=== PATIENT | female | born 1985 | race African-American/Black ===

== ENCOUNTER 2016-12-09 06:27 | Inpatient (IN) | payer OTHER ==
--- NOTE | 2016-12-09 07:09 | PDOC ---
History of Present Illness - General Chief Complaint: Sickle Cell Crisis Stated Complaint: PAIN/SICKLE CELL CRISIS Time Seen by Provider: 12/09/16 07:08 History Source: Patient Exam Limitations: No Limitations - History of Present Illness Initial Comments: 12/09/16 08:09 CHIEF COMPLAINT: Generalized body pain PCP: Dr. Vito Guzman (Microwave Supervisor) [phone] Dr. Mansoor Villaseñor. HISTORY OF PRESENT ILLNESS: 31 year old female presented to the ED with Generalized body pain. A/c to the patient, she has a h/o sickel cell disease and the pain she has now is usual for her when its severe. Complaints of generalized pain more on the lower extremities since 4pm yesterday. Took Oxycodone which didn't help and came to the ED this morning. Denies headache, fever, chills, rigors, sweating, chest pain, sob, cough, abdominal pain, nausea or vomiting. Bowel/Bladder habit normal. Sleep/Appetite disturbed since yesterday Home oxygen therapy @ 2-4L, baseline saturation is around 85-90% as per the patient. 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 Others-unknown. Hospitalized: Aug, 2016 for the Sickel cell painful crisis. Social Hx: Never smoked No Alcohol intake No illicit drug use Obs Hx: 2 Spontaneous abortions Lives at home with her Can do Daily activities 12/09/16 09:07 12/09/16 09:26 Past History - Past Medical History Allergies/Adverse Reactions: Allergies Allergy/AdvReac Type Severity Reaction Status Date / Time Penicillins Allergy Severe ANAPHYLAXIS Verified 12/09/16 06:39 milk Allergy Verified 12/09/16 06:39 milk Allergy Uncoded 12/09/16 06:39 Red grapes Allergy Uncoded 12/09/16 06:39 Home Medications: Ambulatory Orders Hydromorphone [Dilaudid -] 4 mg PO Q8H 08/29/16 Folic Acid - 1 mg PO DAILY #30 tablet 09/06/16 Anemia: Yes (sickle cell) Asthma: Yes Cancer: (thyoma) Cardiac Disorders: No CVA: Yes (age 18, lt sided weakness; TIA age 12) COPD: No CHF: No Dementia: No Diabetes: No GI Disorders: No Disorders: No HTN: No Hypercholesterolemia: No Liver Disease: No Psychiatric Problems: Yes (ANXIETY) Suicide Attempt (Hx): No Seizures: No Thyroid Disease: No - Surgical History Abdominal Surgery: Yes Appendectomy: Yes Cardiac Surgery: No Cholecystectomy: Yes Lung Surgery: No Neurologic Surgery: No Orthopedic Surgery: No - Family Disease History Family Disease History: Other: Father (scd) - Reproductive History (#): 4 Para: 1 Cervical CA: No Dysfunctional Uterine Bleeding: No Ectopic : No Endometrial CA: No Polycystic Ovaries: No Therapeutic (s) & number: No Tubal Ligation: No Spontaneous : 2 - Immunization History Immunization Up to Date: Yes - Psycho/Social/Smoking Cessation Hx Anxiety: Yes Suicidal Ideation: No Smoking Status: No Smoking History: Never smoked Have you smoked in the past 12 months: No Number of Cigarettes Smoked Daily: 0 Information on smoking cessation initiated: No Hx Alcohol Use: No Drug/Substance Use Hx: No Substance Use Type: None Hx Substance Use Treatment: No Review of Systems - Review of Systems Able to Perform ROS?: Yes Comments:: 12/09/16 08:06 CONSTITUTIONAL: Absent: fever, chills, diaphoresis, generalized weakness, malaise, loss of appetite HEENT: Absent: rhinorrhea, nasal congestion, throat pain, throat swelling, difficulty swallowing, mouth swelling, ear pain, eye pain, visual Changes CARDIOVASCULAR: Absent: chest pain, syncope, palpitations, irregular heart rate, lightheadedness , peripheral edema RESPIRATORY: Absent: cough, shortness of breath, dyspnea with exertion, orthopnea, wheezing, stridor, hemoptysis GASTROINTESTINAL: Absent: abdominal pain, abdominal distension, nausea, vomiting, diarrhea, constipation, melena, hematochezia GENITOURINARY: Absent: dysuria, frequency, urgency, hesitancy, hematuria, flank pain, genital pain MUSCULOSKELETAL: Present: Generalized body pain Absent: myalgia, arthralgia, joint swelling SKIN: Absent: rash, itching, pallor HEMATOLOGIC/IMMUNOLOGIC: Absent: easy bleeding, easy bruising, lymphadenopathy, frequent infections ENDOCRINE: Absent: unexplained weight gain, unexplained weight loss, heat intolerance, cold intolerance NEUROLOGIC: Absent: headache, focal weakness or paresthesias, dizziness, unsteady gait, seizure, mental status changes, bladder or bowel incontinence PSYCHIATRIC: Absent: anxiety, depression, suicidal or homicidal ideation, hallucinations. Is the patient limited [place]ian proficient: No *Physical Exam - Vital Signs Last Vital Signs Temp Pulse Resp BP Pulse Ox 98.0 F 104 H 16 93/57 87 L 12/09/16 06:41 12/09/16 06:41 12/09/16 06:41 12/09/16 06:41 12/09/16 06:41 - Physical Exam Comments: 12/09/16 08:04 PE: GENERAL: Awake, alert, and fully oriented, in generalized body pain HEAD: No signs of trauma EYES: PERRLA, EOMI, sclera anicteric, conjunctiva clear ENT: Auricles normal inspection, hearing grossly normal, nares patent, oropharynx clear without exudates. Moist mucosa NECK: Normal ROM, supple, no lymphadenopathy, JVD, or masses LUNGS: Breath sounds equal, clear to auscultation bilaterally. No wheezes, and no crackles.. HEART: Regular rate and rhythm, normal S1 and S2, no murmurs, rubs or gallops ABDOMEN: Soft, nontender, normoactive bowel sounds. No guarding, no rebound. No masses EXTREMITIES: Generalized tenderness to slight touch more towards the lower extremities. Normal range of motion, no edema. No clubbing or cyanosis. No cords, erythema, or tenderness NEUROLOGICAL: Cranial nerves II through XII grossly intact. Normal speech, Gait not observed. SKIN: Warm, Dry, normal turgor, no rashes or lesions noted. ED Treatment Course - LABORATORY CBC & Chemistry Diagram: 12/09/16 07:45 12/09/16 07:45 Medical Decision Making - Medical Decision Making 12/09/16 07:10 Patient seen and examined at bed side. Vitals, unremarkable. Patient is in a lot of pain. Physical examination positive finding: tenderness throughout the body with slight touch, more tender over the lower extremities. Will order CBC, CMP, Reticulocyte count, LDH, UA, CXR, Type and screen. IV NS 1L bolus and IV NS @ 100mls/hr IV Dilaudid 1mg stat Nasal Oxygen 12/09/16 07:35 Patient says the pain didn't resolve with 1mg. Will order 1mg of Dilaudid stat. 12/09/16 08:25 Labs reviewed, H/H 8.9/26.2; Reticulocyte count 22.06 12/09/16 09:06 Ordered 1mg Dilaudid stat. A/P Sickel cell painful crisis (HbSS) Patient presents with generalized body pain, tenderness throughout the body H/H 8.9/26.2; Reticulocyte count 22.06 Patient received 3mg IV Dilaudid, still complaining of severe pain IV NS 2L bolus, IV NS @ 100mls/hr Oxygen-sat maintaining between 90-95 @ 4L Illness, Investigation and Plan of care explained to the patient. She verbalized understanding. Case seen and discussed with Dr. Guy. *DC/Admit/Observation/Transfer Diagnosis at time of Disposition: Sickle cell pain crisis - Discharge Dispostion Admit: Yes
[2016-12-09] MEDS ORDERED: HYDROmorphone HCL CARPU-JECT 1 MG/1 ML DISP.SYRIN IVPB ONE ×3 (07:18→09:05)
[2016-12-09] MEDS ORDERED: HYDROmorphone HCL CARPU-JECT 1 MG/1 ML DISP.SYRIN ONE ×4 (07:25→11:08)
[2016-12-09] MEDS ORDERED: SODIUM CHLORIDE 1,000 ML IV STA ×2 (07:47→08:49)
[2016-12-09] MEDS ORDERED: SODIUM CHLORIDE 1,000 ML IV SCH ×2 (08:00→10:00)
[2016-12-09 08:04] LABS: MCH 31.9 pg (25.7-33.7); MCHC 34.1 g/dl (32.0-36.0); MEAN CELL VOLUME 93.4 fl (80-96); MEAN PLT VOLUME 8.4 fl (7.5-11.1); PLATELET COUNT 336 K/MM3 (134-434)
[2016-12-09 08:24] LABS: ALBUMIN 3.7 g/dl (3.4-5.0); ALK PHOS 109 U/L (45-117); ANION GAP 9 (8-16); BILIRUBIN,TOTAL 1.8 mg/dL (0.2-1.0); CALCIUM 8.6 mg/dL (8.5-10.1); CO2 27 mmol/L (21-32); CREATININE 0.5 mg/dL (0.55-1.02); GLUCOSE,RANDOM 112 mg/dL (74-106); SGPT/ALT 24 U/L (12-78); TOT PROT 7.1 g/dl (6.4-8.2)
[2016-12-09 08:26] LABS: SGOT/AST 57 U/L (15-37)
[2016-12-09 08:27] LABS: LDH 678 U/L (84-246)
--- NOTE | 2016-12-09 08:30 | PDOC ---
Attending Attestation - Resident Resident Name: Jaz Hellerny - ED Attending Attestation I have performed the following: I have examined & evaluated the patient, The case was reviewed & discussed with the resident, I agree w/resident's findings & plan, Exceptions are as noted - HPI HPI: 12/09/16 08:27 31 yo F h/o sickle cell disease, AVN presenting to the ER with a complaint of diffuse bone and joint pain No fevers no chills No chest pain No shortness of breath No nausea or vomiting No trauma - Physicial Exam PE: 12/09/16 08:28 On examination: Pt is very uncomfortable No wheezes or rales No abdominal tenderness - Medical Decision Making 12/09/16 08:28 Will do labs including CBC, Type and Screen, Reticulocyte Differential: sickle crisis, acute chest, pneumonia, PE Pt initially refusing CXR Given a total of Dilaudid 3mg IV n 1mg increments Pt allowing CXR Pt found snoring but when awoken, pt cries in pain Pt states she continuously wears 2 L O2 Admitted to hospitalist service
--- NOTE | 2016-12-09 09:16 | HP ---
[id number] is a 31 year old female with a history of sickle cell disease, asthma, TIA (age 12), CVA (age 18), avascular necrosis of bilateral hips, and 2 spontaneous abortions, who presented to the ED with complaints of generalized pain that is typical to her sickle cell pain. She is normally hospitalized with vaso-occlusive crisis less than once per year. She describes the pain as sharp, constant, and generalized, worst in the bilateral lower extremities. She took oxycodone without relief and came into the ED. Patient denies dyspnea, wheezing , coughing, chest pain, calf tenderness or swelling, flank pain, headache, dizziness, nausea, vomiting, diarrhea. She denies recent travel/trauma/surgery, chest pain, cough or hemoptysis, calf pain, OCP use, cigarette smoking, and family/personal history of DVT/PE. ER course was notable for: (1) H/H 8.9/26.2, reticulocyte count 22.06 (2) Oxygen Saturation 87% on room air; patient uses home O2 and baseline is about 94% on 2L per her report (3) WBC count 32.7 PAST SURGICAL HISTORY: Breast Biopsy Appendectomy Cholecystectomy Thymectomy (2007) Social History: Lives at home with keanu, studying biochemistry, not employed Smoking: never smoked Alcohol: no alcohol use Drugs: no drug use Family History: Notable for father with Sickle Cell Disease Allergies Penicillins Allergy (Severe, Verified 12/09/16 06:39) - ANAPHYLAXIS Milk Allergy (Verified 12/09/16 06:39) Red grapes Allergy (Uncoded 12/09/16 06:39) HOME MEDICATIONS: Home Medications Medication Instructions Recorded Hydromorphone [Dilaudid -] 4 mg PO Q8H 08/29/16 Folic Acid - 1 mg PO DAILY #30 tablet 09/06/16 REVIEW OF SYSTEMS CONSTITUTIONAL: generalized weakness Absent: fever, chills, diaphoresis, generalized weakness, malaise, loss of appetite, weight change HEENT: Absent: rhinorrhea, nasal congestion, throat pain, throat swelling, difficulty swallowing, mouth swelling, ear pain, eye pain, visual changes CARDIOVASCULAR: Absent: chest pain, syncope, palpitations, irregular heart rate, lightheadedness , peripheral edema RESPIRATORY: No shortness of breath- states she is breathing rapidly because of pain Absent: cough, shortness of breath, dyspnea with exertion, orthopnea, wheezing, stridor, hemoptysis GASTROINTESTINAL: Absent: abdominal pain, abdominal distension, nausea, vomiting, diarrhea, constipation, melena, hematochezia GENITOURINARY: Absent: dysuria, frequency, urgency, hesitancy, hematuria, flank pain, genital pain MUSCULOSKELETAL: pain to lower extremities > upper extremities Absent: myalgia, arthralgia, joint swelling, back pain, neck pain SKIN: Absent: rash, itching, pallor HEMATOLOGIC/IMMUNOLOGIC: No history of DVT/PE Absent: easy bleeding, easy bruising, lymphadenopathy, frequent infections ENDOCRINE: Absent: unexplained weight gain, unexplained weight loss, heat intolerance, cold intolerance NEUROLOGIC: Absent: headache, focal weakness or paresthesias, dizziness, unsteady gait, seizure, mental status changes, bladder or bowel incontinence PSYCHIATRIC: Absent: anxiety, depression, suicidal or homicidal ideation, hallucinations. PHYSICAL EXAMINATION Vital Signs - 24 hr 12/09/16 06:41 Temperature 98.0 F Pulse Rate 104 H Respiratory 16 Rate Blood Pressure 93/57 O2 Sat by Pulse 87 L Oximetry (%) GENERAL: Awake, alert, and fully oriented, in distress secondary to pain. LUNGS: Tachypneic, breath sounds equal, clear to auscultation bilaterally. No wheezes, and no crackles. HEART: Regular rate and rhythm, normal S1 and S2. ABDOMEN: Obese. Soft, nontender, not distended, normoactive bowel sounds. MUSCULOSKELETAL: Normal range of motion of all joints. UPPER EXTREMITIES: 2+ pulses, warm, well-perfused. No cyanosis. No clubbing. Cap refill <2 seconds. No peripheral edema. LOWER EXTREMITIES: Diffuse lower extremity tenderness. 2+ pulses, warm, well- perfused. No peripheral edema. NEUROLOGICAL: Cranial nerves II-XII intact. Normal speech. PSYCHIATRIC: Calm and cooperative. SKIN: Warm, dry, normal turgor, no rashes or lesions noted. Laboratory Results - last 24 hr 12/09/16 12/09/16 12/09/16 07:45 07:45 07:45 RBC 2.80 L Hgb 8.9 L Hct 26.2 L MCV 93.4 MCHC 34.1 RDW 29.0 H Plt Count 336 D MPV 8.4 Neutrophils % Y Lymphocytes % Y Retic Count 22.06 H* D Sodium Potassium Chloride Carbon Dioxide Anion Gap BUN Creatinine Creat Clearance w eGFR Random Glucose Calcium Total Bilirubin AST ALT Alkaline Phosphatase LD Total Total Protein Albumin Serum , Qual Negative Blood Type Antibody Screen 12/09/16 12/09/16 07:45 08:07 RBC Hgb Hct MCV MCHC RDW Plt Count MPV Neutrophils % Lymphocytes % Retic Count Sodium 138 Potassium 4.8 Chloride 102 Carbon Dioxide 27 Anion Gap 9 BUN 8 Creatinine 0.5 L D Creat Clearance w eGFR > 60 Random Glucose 112 H D Calcium 8.6 Total Bilirubin 1.8 H D AST 57 H D ALT 24 Alkaline Phosphatase 109 D LD Total 678 H D Total Protein 7.1 Albumin 3.7 Serum , Qual Blood Type O POSITIVE Antibody Screen Negative ASSESSMENT/PLAN: This is a 31 year old female with a history of sickle cell disease admitted with vaso-occlusive crisis. Sickle Cell disease - Pain management: - Dilaudid IVPB 2mg q 4 hours PRN pain - Gentle hydration - NS @ 83 ml/hour - Continue folic acid - Diphenydramine PRN for itching - Ondansetron PRN for nausea - H/H 8.9/26.2, transfuse RBC for Hgb < 7 - Continue to trend reticulocyte count and LDH Leukocytosis: - Possibly secondary to leukemoid reaction vs infection - WBC count 32.7 - Continue to trend WBC and fever curve - Blood cultures pending - Urine culture pending - Chest X-ray pending - Acetaminophen PRN for fever Hypoxia: - Possibly secondary to anemia vs chest splinting from pain - Considered acute chest syndrome, however unlikely because patient denies difficulty breathing, cough, dyspnea, wheezing, is afebrile, AP CXR does not demonstrate an infiltrate. Will obtain PA/Lateral for better view. - Considered pulmonary embolism, however unlikely because denies history of PE/ DVT, pleuritic pain, calf pain or swelling, or hemoptysis. - Continue supplementary oxygen via nasal cannula; wean FiO2 as tolerated ( currently on 6L, baseline is 2L) - Incentive spirometer - Nebulizer treatment PRN wheezing DVT prophyaxis: - Lovenox 40 mg daily - Out of bed as tolerated F/E/N: - Vincenzo hydration - Replete electrolytes as needed - Regular diet Code status: - FULL CODE Problem List - Problem (1) Asthma Code(s): J45.909 - UNSPECIFIED ASTHMA, UNCOMPLICATED (2) DVT prophylaxis Code(s): OWM6431 - (3) Sickle cell anemia with crisis Code(s): D57.00 - HB-SS DISEASE WITH CRISIS, UNSPECIFIED Visit type - Emergency Visit Emergency Visit: Yes ED Registration Date: 12/09/16 Care time: The patient presented to the Emergency Department on the above date and was hospitalized for further evaluation of their emergent condition. - New Patient This patient is new to me today: Yes Date on this admission: 12/09/16 - Critical Care Critical Care patient: No
[2016-12-09 09:25] LABS: WHITE BLOOD COUNT 32.7 K/mm3 (4.0-10.0)
[2016-12-09 09:26] LABS: METAMYELOCYTE 3 % (0-2)
[2016-12-09 09:27] LABS: ANISOCYTOSIS 3+; HYPOCHROMIA 3+; POIKILOCYTOSIS 2+; POLYCHROMASIA 4+
[2016-12-09 09:28] LABS: PLATELET ESTIMATE ADEQUATE (NORMAL); TARGET CELLS FEW
[2016-12-09] MEDS ORDERED: HYDROmorphone HCL CARPU-JECT 2 MG/1 ML DISP.SYRIN IVPB PRN ×2 (09:56→19:24)
[2016-12-09] MEDS ORDERED: ONDANSETRON 4 MG/2 ML VIAL IVPB PRN (09:56)
[2016-12-09] MEDS: ENOXAPARIN NA (PORCINE) 40 MG/0.4 ML DISP.SYRIN SQ SCH (10:15)
[2016-12-09] MEDS: FOLIC ACID 1 MG TABLET (FP) PO SCH (10:15)
[2016-12-09] MEDS ORDERED: FOLIC ACID 1 MG TABLET (FP) ONE ×2 (10:58→11:08)
[2016-12-09] MEDS ORDERED: ENOXAPARIN NA (PORCINE) 40 MG/0.4 ML DISP.SYRIN SQ ONE (10:59)
[2016-12-09] MEDS: HYDROmorphone HCL CARPU-JECT 2 MG/1 ML DISP.SYRIN IVPUSH ONE ×2 (11:16→13:41)
[2016-12-09 11:58] VITALS: BMI 44.9
[2016-12-09 14:04] LABS: URINE APPEARANCE CLEAR; URINE BILIRUBIN NEGATIVE (NEGATIVE); URINE COLOR YELLOW; URINE GLUCOSE (UA) NEGATIVE (NEGATIVE); URINE KETONE NEGATIVE (NEGATIVE); URINE LEUK ESTERASE NEGATIVE (NEGATIVE); URINE NITRITE NEGATIVE (NEGATIVE); URINE UROBILINOGEN NEGATIVE E.U./dl (0.2-1.0)
[2016-12-09 14:05] LABS: URINE BLOOD 2+ (NEGATIVE); URINE PROTEIN 2+ (NEGATIVE)
[2016-12-09 14:06] LABS: URINE BACTERIA RARE /hpf (NONE SEEN); URINE MUCUS RARE; URINE RBC 3 /hpf (0-3); URINE WBC 1 /hpf (3-5)
[2016-12-09] MEDS: DOCUSATE SODIUM 100 MG CAPSULE (FP) PO SCH ×2 (15:45→21:38)
[2016-12-09] MEDS ORDERED: KETOROLAC TROMETHAMINE 15 MG/ML VIAL IVPUSH ONE (18:00)
[2016-12-09] MEDS: ACETAMINOPHEN 325 MG TABLET (FP) PO PRN (18:48)
[2016-12-09] MEDS: SODIUM CHLORIDE 1,000 ML IV SCH (19:18)
[2016-12-09] MEDS ORDERED: HYDROmorphone HCL CARPU-JECT 2 MG/1 ML DISP.SYRIN IVPB ONE (19:21)
--- NOTE | 2016-12-09 19:52 | CONSULT ---
Consult Consult Specialty:: Hematology Oncology Referred by:: Lily Rodríguez Reason for Consultation:: Pain lower extremities X several days, Hx SS disease - History of Present Illness History of Present Illness: 31 y/o F w Hx SS disease , average 3 hospitalizations/year, had been on exchange program X several years, hx Hydrea Rx in past , still looking for physician continuity with regards to f/u of her various issues. She had an upper resp. infection (cough, murky phlegm) last week which resolved several days ago, but now she has developed leg pain b/l c/w her usual crises pains. She denies fever/ chills /dysuria ; she has chronic MARINELLI, hx asthma /airway disease , seen by Dr Young , and uses portable O2 at home ; she denies any worsening of her breathing in last few days. Her CXR's here show cardiomegaly, increased markings, blunting L CP angle.CBC showed WBC32.7 w 72 p, 14 l,8monos, 2 eos H/H = 8.9/26 plates 331K Retic 22% 3+ sickle cells creat 0.8 T.bili1.8 LDH 678 ;UA w 2+blood/prot .Pt on narcotics at home ; Dilauded 2mg not helping at this time. Pt on hydration ,Folic acid.Afebrile, no ab's yet. 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, TIA (age 12) Pulmonary: Yes: Asthma, O2 Dependent (has O2 athome) Gastrointestinal: Yes: Constipation, Other (hyperemesis gravidum) Hepatobiliary: Yes: Cholelithiasis, Cholecystitis, Other (cholecystectomy) ...LMP: 10/28/16 ...: Yes Heme/Onc: Yes: Sickle Cell Disease Psych: Yes: Anxiety Musculoskeletal: Yes: Other (chronic hip pains due to AVN ) Rheumatology: No: Fibromyalgia, Gout, Lupus, Rheumatoid Arthritis, Sarcoidosis, Vasculitis, Other ENT: No: Allergic Rhinitis, Sinusitis, Other Endocrine: Yes: Other (obesity) - Past Surgical History Past Surgical History: Yes: Breast Biopsy, Cholecystectomy, Tonsillectomy - Alcohol/Substance Use Hx Alcohol Use: No History of Substance Use: reports: None - Smoking History Smoking history: Never smoked Have you smoked in the past 12 months: No Aproximately how many cigarettes per day: 0 - Social History ADL: Independent Occupation: unemployed History of Recent Travel: No Home Medications - Allergies Allergies/Adverse Reactions: Allergies Allergy/AdvReac Type Severity Reaction Status Date / Time Penicillins Allergy Severe ANAPHYLAXIS Verified 12/09/16 06:39 milk Allergy Verified 12/09/16 06:39 milk Allergy Uncoded 12/09/16 06:39 Red grapes Allergy Uncoded 12/09/16 06:39 - Home Medications Home Medications: Ambulatory Orders Hydromorphone [Dilaudid -] 4 mg PO Q8H PRN 08/29/16 Folic Acid - 1 mg PO DAILY #30 tablet 09/06/16 Family Disease History - Family Disease History Family Disease History: Other: Father (sickle cell trait), Mother (sickle cell trait,breast/ovarian ca), Sister (sickle cell trait) Review of Systems - Review of Systems Constitutional: reports: Loss of Appetite, Weakness Eyes: reports: No Symptoms HENT: reports: No Symptoms Neck: reports: No Symptoms Cardiovascular: reports: No Symptoms Respiratory: reports: SOB, SOB on Exertion. denies: No Symptoms, Cough, Exercise Intolerance, Hemoptysis, Orthopnea, PND, Snoring, Wheezing, Other Gastrointestinal: reports: Constipation. denies: No Symptoms, Abdominal Pain, Bloating, Diarrhea, Dysphagia, Indigestion, Melena, Nausea, Rectal Bleeding, Vomiting, Vomiting Blood, Other Genitourinary: reports: No Symptoms Breasts: denies: No Symptoms Reported, See HPI, Breast Implants, Discharge from Nipple, Lumps, Pain, Skin Changes, Other Musculoskeletal: reports: Extremity Pain, Joint Pain, Muscle Pain Integumentary: denies: No Symptoms, Blister, Bruising, Change in Color, Eczema, Erythema, Incision, Lesions, Lump, Pallor, Pruritis, Rash, Wound, Other Neurological: denies: No Symptoms, Change in LOC, Change in Speech, Confusion, Dizziness, Headache, Incoordination, Numbness, Parasthesia, Pre-Existing Deficit , Seizure, Syncope, Tremors, Unsteady Gait, Weakness, Other Endocrine: denies: No Symptoms, Excessive Sweating, Flushing, Increased Hunger, Increased Thirst, Intolerance to Cold, Intolerance to Heat, Unexplained Weight Gain, Unexplained Weight Loss, Other Hematology/Lymphatic: denies: No Symptoms, Easily Bruised, Excessive Bleeding, Swollen Glands, Other Psychiatric: reports: Anxiety Physical Exam Vital Signs: Vital Signs Temperature 99.1 F 12/09/16 18:14 Pulse Rate 100 H 12/09/16 18:14 Respiratory Rate 16 12/09/16 18:14 Blood Pressure 138/56 12/09/16 18:14 O2 Sat by Pulse Oximetry (%) 96 12/09/16 16:00 Constitutional: Yes: Anxious, Moderate Distress, Obese Eyes: Yes: Other (conj pale) HENT: Yes: WNL Neck: Yes: WNL Cardiovascular: Yes: Tachycardia, S1, S2 Respiratory: Yes: Diminished Gastrointestinal: Yes: WNL, Normal Bowel Sounds, Abdomen, Obese. No: Soft, Ascites, Distention, Hematemesis, Hemorrhoids, Hepatomegaly, Hernia, Hyperactive Bowel Sounds, Hypoactive Bowel Sounds, Melena, Palpable Mass, Pulsatile Mass, Rectal Bleeding, Splenomegaly, Tenderness, Tenderness, Epigastrium, Tenderness, Rebound, Vomiting, Other Musculoskeletal: Yes: Joint Stiffness, Muscle Pain Extremities: Yes: Other (decreased ROM LE's) Problem List - Problems (1) Sickle cell pain crisis Code(s): D57.00 - HB-SS DISEASE WITH CRISIS, UNSPECIFIED Assessment/Plan Sickle crisis - Continue hydration , increase dilauded to 3mg q3h prn , will add motrin q6h and tylenol iv prn ; Folic acid , Lovenox prophylaxis ; leucocytosis may be reactive , continue to follow and see if coming down ; monitor for fever ; monitor O2 sat's ; consider pulmonary imput in view of her oxygen exchange issues ; keep Hgb >8.If crisis lasts too long, could consider exchange .
[2016-12-09] MEDS ORDERED: ACETAMINOPHEN 1000 MG/100 ML VIAL (NON FORMULARY) IVPB PRN (20:18)
[2016-12-09] MEDS: PANTOPRAZOLE 20 MG TABLET (FP) PO SCH (21:38)
[2016-12-09] MEDS: IBUPROFEN 400 MG TABLET (FP) PO PRN (21:38)
[2016-12-09] MEDS: ALBUTEROL SO4 0.083% IH SOL 2.5 MG/3 ML VIAL.NEB. NEB PRN (21:43)
[2016-12-09] MEDS: HYDROmorphone HCL CARPU-JECT 2 MG/1 ML DISP.SYRIN IVPB PRN (22:16)
[2016-12-10] MEDS: HYDROmorphone HCL CARPU-JECT 2 MG/1 ML DISP.SYRIN IVPB PRN ×7 (02:15→21:08)
[2016-12-10] MEDS: SODIUM CHLORIDE 1,000 ML IV SCH ×2 (02:19→15:13)
[2016-12-10] MEDS: IBUPROFEN 400 MG TABLET (FP) PO PRN ×3 (05:14→20:32)
[2016-12-10] MEDS: DOCUSATE SODIUM 100 MG CAPSULE (FP) PO SCH ×3 (06:38→22:09)
[2016-12-10 08:34] LABS: BASOPHIL 0.9 % (0-2.0); EOSINOPHIL 0.9 % (0-4.5); MCH 31.5 pg (25.7-33.7); MCHC 33.9 g/dl (32.0-36.0); MEAN CELL VOLUME 92.8 fl (80-96); MEAN PLT VOLUME 8.2 fl (7.5-11.1); NEUTROPHILS 68.2 % (42.8-82.8); PLATELET COUNT 261 K/MM3 (134-434); RDW 25.6 % (11.6-15.6); WHITE BLOOD COUNT 16.8 K/mm3 (4.0-10.0)
[2016-12-10 09:15] LABS: ALBUMIN 3.1 g/dl (3.4-5.0); ALK PHOS 97 U/L (45-117); ANION GAP 7 (8-16); BILIRUBIN,TOTAL 3.3 mg/dL (0.2-1.0); CALCIUM 8.4 mg/dL (8.5-10.1); CO2 30 mmol/L (21-32); CREATININE 0.4 mg/dL (0.55-1.02); GLUCOSE,RANDOM 84 mg/dL (74-106); LDH 576 U/L (84-246); MAGNESIUM 2.2 mg/dL (1.8-2.4); PHOSPHOROUS 4.1 mg/dL (2.5-4.9); SGOT/AST 43 U/L (15-37); SGPT/ALT 20 U/L (12-78); TOT PROT 6.2 g/dl (6.4-8.2)
[2016-12-10] MEDS: FOLIC ACID 1 MG TABLET (FP) PO SCH (09:38)
[2016-12-10] MEDS: PANTOPRAZOLE 20 MG TABLET (FP) PO SCH (09:38)
[2016-12-10] MEDS: ENOXAPARIN NA (PORCINE) 40 MG/0.4 ML DISP.SYRIN SQ SCH (09:38)
[2016-12-10] MEDS: ALBUTEROL SO4 0.083% IH SOL 2.5 MG/3 ML VIAL.NEB. NEB PRN ×2 (12:06→23:22)
--- NOTE | 2016-12-10 14:41 | PN ---
Physical Exam: SUBJECTIVE: Patient seen and examined. She says she is better than yesterday but her legs are still very painful and restless. Denies CP or difficulty breathing, able to have full conversations on the phone and in person OBJECTIVE: Vital Signs Period Temp Pulse Resp BP Sys/Rendon Pulse Ox Last 24 Hr 98.8 F-99.4 F 90-100 16-28 104-138/50-56 93-96 PE Neuro: alert, awake, cn 2-12intact HEENT: poor dentition, greyish front teeth Pulm: distant, diminished no acute sob CV: s1 s2 rrr no mrg Abd: s nt nd + bs Ext: b/l LE tenderness to palpation, b/l UE tenderness improved Laboratory Results - last 24 hr 12/10/16 12/10/16 12/10/16 07:45 07:45 07:45 WBC 16.8 H D RBC 2.46 L Hgb 7.8 L D Hct 22.9 L MCV 92.8 MCHC 33.9 RDW 25.6 H Plt Count 261 D MPV 8.2 Neutrophils % 68.2 Lymphocytes % 21.5 D Monocytes % 8.5 Eosinophils % 0.9 Basophils % 0.9 Retic Count 20.12 H* Sodium 140 Potassium 4.4 Chloride 103 Carbon Dioxide 30 Anion Gap 7 L BUN 9 Creatinine 0.4 L Creat Clearance w eGFR > 60 Random Glucose 84 D Calcium 8.4 L Phosphorus 4.1 Magnesium 2.2 Total Bilirubin 3.3 H D AST 43 H D ALT 20 Alkaline Phosphatase 97 LD Total 576 H Total Protein 6.2 L Albumin 3.1 L Active Medications Generic Name Dose Route Start Last Admin Trade Name Hu PRN Reason Stop Dose Admin Acetaminophen 650 mg 12/09/16 09:56 12/09/16 18:48 Tylenol - PO 650 mg Q4H PRN Administration FEVER OR PAIN Acetaminophen 1,000 mg 12/09/16 20:18 Ofirmev Injection - IVPB Q6H PRN FEVER OR PAIN Albuterol Sulfate 1 amp 12/09/16 14:40 12/10/16 12:06 Ventolin 0.083% Nebulizer Soln - NEB 1 amp Q4H PRN Administration SHORT OF BREATH/WHEEZING Diphenhydramine HCl 12.5 mg 12/09/16 14:40 12/10/16 14:34 Benadryl Injection - IVPUSH 12.5 mg Q4H PRN Administration FOR ITCHING Docusate Sodium 100 mg 12/09/16 14:00 12/10/16 13:06 Colace - PO 100 mg TID GARETT Administration Enoxaparin Sodium 40 mg 12/09/16 10:00 12/10/16 09:38 Lovenox - SQ 40 mg DAILY GARETT Administration Folic Acid 1 mg 12/09/16 10:00 12/10/16 09:38 Folic Acid - PO 1 mg DAILY GARETT Administration Hydromorphone HCl 2 mg 12/09/16 19:24 Dilaudid Injection - IVPB Q3H PRN PAIN Hydromorphone HCl 3 mg 12/09/16 20:17 12/10/16 11:56 Dilaudid Injection - IVPB 3 mg Q3H PRN Administration Sodium Chloride 1,000 mls @ 42 mls/hr 12/09/16 18:15 12/10/16 02:19 Normal Saline - IV 42 mls/hr ASDIR GARETT Administration Ibuprofen 400 mg 12/09/16 20:17 12/10/16 05:14 Motrin - PO 12/11/16 14:18 400 mg Q6H PRN Administration PAIN Ondansetron HCl 4 mg 12/09/16 09:56 Zofran Injection IVPB Q6H PRN NAUSEA Pantoprazole Sodium 20 mg 12/09/16 20:30 12/10/16 09:38 Protonix - PO 20 mg DAILY GARETT Administration Assessment: 31 year old female with a history of sickle cell disease admitted with vaso-occlusive crisis. Plan: 1. Sickle cell crisis - Increase dilaudid 3mg q3hr - Add Motrin q6h and tylenol prn per heme - Increase NS 100cc/hr - Continue folic acid - Monitor hgb; transfuse RBC for Hgb < 7 and 8 if crisis persist - Retic count and LDH down trending, cont trending - Appreciate Heme consult 2. Leukocytosis - Possibly secondary to leukemoid reaction vs infection - WBC Improving, afebrile - BC x1 bottle pending, 1 NG - Will monitor 3. Hypoxia - Possibly secondary to anemia vs chest splinting from pain, ? infiltrate - Will get CT chest eval left retrocardiac density on CXR - Give empiric levaquin 750mmg daily - Continue supplementary oxygen via nasal cannula; wean FiO2 as tolerated ( currently on 6L, baseline is 2L) - Incentive spirometer - Nebulizer treatment PRN wheezing 4. DVT ppx - Lovenox 40 mg daily - Out of bed as tolerated Problem List - Problems (1) Asthma Code(s): J45.909 - UNSPECIFIED ASTHMA, UNCOMPLICATED (2) DVT prophylaxis Code(s): [id number] - (3) Sickle cell pain crisis Code(s): D57.00 - HB-SS DISEASE WITH CRISIS, UNSPECIFIED (4) Sickle cell anemia with crisis Code(s): D57.00 - HB-SS DISEASE WITH CRISIS, UNSPECIFIED Visit type - Emergency Visit Emergency Visit: Yes ED Registration Date: 12/09/16 Care time: The patient presented to the Emergency Department on the above date and was hospitalized for further evaluation of their emergent condition. - New Patient This patient is new to me today: Yes Date on this admission: 12/10/16 - Critical Care Critical Care patient: No
[2016-12-10] MEDS ORDERED: CEFTRIAXONE 1 GM in DEXTROSE 5%-WATER - 50 ML IVPB SCH (15:15)
[2016-12-10] MEDS ORDERED: LEVOFLOXACIN 750 MG IVPB 150 ML IVPB ONE (15:45)
[2016-12-11] MEDS: HYDROmorphone HCL CARPU-JECT 2 MG/1 ML DISP.SYRIN IVPB PRN ×8 (00:08→22:53)
[2016-12-11] MEDS: SODIUM CHLORIDE 1,000 ML IV SCH ×4 (01:03→20:30)
[2016-12-11] MEDS: DOCUSATE SODIUM 100 MG CAPSULE (FP) PO SCH ×3 (06:27→21:45)
[2016-12-11] MEDS: ACETAMINOPHEN 325 MG TABLET (FP) PO PRN ×2 (06:31→19:00)
[2016-12-11 08:51] LABS: BASOPHIL 0.3 % (0-2.0); EOSINOPHIL 0.2 % (0-4.5); MCH 31.1 pg (25.7-33.7); MCHC 33.9 g/dl (32.0-36.0); MEAN CELL VOLUME 91.8 fl (80-96); MEAN PLT VOLUME 8.7 fl (7.5-11.1); NEUTROPHILS 77.8 % (42.8-82.8); PLATELET COUNT 247 K/MM3 (134-434); RDW 24.4 % (11.6-15.6); WHITE BLOOD COUNT 18.2 K/mm3 (4.0-10.0)
[2016-12-11] MEDS: IBUPROFEN 400 MG TABLET (FP) PO PRN (08:53)
[2016-12-11] MEDS: ENOXAPARIN NA (PORCINE) 40 MG/0.4 ML DISP.SYRIN SQ SCH (09:03)
[2016-12-11] MEDS: FOLIC ACID 1 MG TABLET (FP) PO SCH (09:03)
[2016-12-11] MEDS: PANTOPRAZOLE 20 MG TABLET (FP) PO SCH (09:03)
[2016-12-11 09:11] LABS: ALBUMIN 3.2 g/dl (3.4-5.0); ANION GAP 7 (8-16); CALCIUM 8.3 mg/dL (8.5-10.1); CO2 32 mmol/L (21-32); GLUCOSE,RANDOM 90 mg/dL (74-106)
[2016-12-11 09:18] LABS: ALK PHOS 107 U/L (45-117); BILIRUBIN,TOTAL 2.7 mg/dL (0.2-1.0); CREATININE 0.4 mg/dL (0.55-1.02); LDH 535 U/L (84-246); SGOT/AST 37 U/L (15-37); SGPT/ALT 21 U/L (12-78); TOT PROT 6.4 g/dl (6.4-8.2)
[2016-12-11 09:52] LABS: HYPOCHROMIA 2+; POLYCHROMASIA 2+
[2016-12-11] MEDS: ALBUTEROL SO4 0.083% IH SOL 2.5 MG/3 ML VIAL.NEB. NEB PRN ×2 (11:18→23:15)
--- NOTE | 2016-12-11 18:17 | PN ---
Physical Exam: SUBJECTIVE: Patient seen and examined. She says she feels ok today. She is fully conversational on the phone, she doesn't want anymore pain medication increases. OBJECTIVE: Vital Signs Period Temp Pulse Resp BP Sys/Rendon Pulse Ox Last 24 Hr 98.6 F-100.1 F 95-114 20-24 94-120/49-85 90-96 PE Neuro: alert, awake, cn 2-12intact HEENT: poor dentition, greyish front teeth Pulm: mild wheezing, mild tachypnea +NC CV: s1 s2 rrr no mrg Abd: s nt nd + bs Ext: b/l LE tenderness to palpation, b/l UE tenderness Laboratory Results - last 24 hr 12/11/16 12/11/16 07:15 07:15 WBC 18.2 H RBC 2.37 L Hgb 7.4 L Hct 21.7 L MCV 91.8 MCHC 33.9 RDW 24.4 H Plt Count 247 MPV 8.7 Neutrophils % 77.8 Lymphocytes % 12.5 D Monocytes % 9.2 Eosinophils % 0.2 Basophils % 0.3 Polychromasia 2+ Hypochromic-Microcytic 2+ Sickle Cells 1+ Retic Count 19.70 H* Sodium 137 Potassium 4.3 Chloride 98 Carbon Dioxide 32 Anion Gap 7 L BUN 6 L D Creatinine 0.4 L Creat Clearance w eGFR > 60 Random Glucose 90 Calcium 8.3 L Magnesium 2.0 Total Bilirubin 2.7 H AST 37 ALT 21 Alkaline Phosphatase 107 LD Total 535 H Total Protein 6.4 Albumin 3.2 L Active Medications Generic Name Dose Route Start Last Admin Trade Name Hu PRN Reason Stop Dose Admin Acetaminophen 650 mg 12/09/16 09:56 12/11/16 06:31 Tylenol - PO 650 mg Q4H PRN Administration FEVER OR PAIN Acetaminophen 1,000 mg 12/09/16 20:18 Ofirmev Injection - IVPB Q6H PRN FEVER OR PAIN Albuterol Sulfate 1 amp 12/09/16 14:40 12/11/16 11:18 Ventolin 0.083% Nebulizer Soln - NEB 1 amp Q4H PRN Administration SHORT OF BREATH/WHEEZING Diphenhydramine HCl 12.5 mg 12/09/16 14:40 12/11/16 09:01 Benadryl Injection - IVPUSH 12.5 mg Q4H PRN Administration FOR ITCHING Docusate Sodium 100 mg 12/09/16 14:00 12/11/16 13:11 Colace - PO 100 mg TID GARETT Administration Enoxaparin Sodium 40 mg 12/09/16 10:00 12/11/16 09:03 Lovenox - SQ 40 mg DAILY GARETT Administration Folic Acid 1 mg 12/09/16 10:00 12/11/16 09:03 Folic Acid - PO 1 mg DAILY GARETT Administration Hydromorphone HCl 2 mg 12/09/16 19:24 Dilaudid Injection - IVPB Q3H PRN PAIN Hydromorphone HCl 3 mg 12/09/16 20:17 12/11/16 16:26 Dilaudid Injection - IVPB 3 mg Q3H PRN Administration Sodium Chloride 1,000 mls @ 100 mls/hr 12/10/16 14:53 12/11/16 14:55 Normal Saline - IV Not Given ASDIR GARETT Ondansetron HCl 4 mg 12/09/16 09:56 Zofran Injection IVPB Q6H PRN NAUSEA Pantoprazole Sodium 20 mg 12/09/16 20:30 12/11/16 09:03 Protonix - PO 20 mg DAILY GARETT Administration Assessment: 31 year old female with a history of sickle cell disease admitted with vaso-occlusive crisis. Plan: 1. Sickle cell crisis - Dilaudid 3mg q3hr - Motrin q6h x2 more doses and tylenol prn per heme - Increase NS 125 cc/hr - Continue folic acid - Monitor hgb; transfuse RBC for Hgb < 7 and 8 if crisis persist - Retic count and LDH down trending, cont trending 2. Leukocytosis - Possibly secondary to leukemoid reaction vs infection - Mild increase - Will monitor, pt afebrile 3. Hypoxia - Possibly secondary to anemia vs chest splinting from pain, ? infiltrate - Will get CT chest eval left retrocardiac density on CXR - Levaquin 750mg daily (day 2) - Continue supplementary oxygen via nasal cannula; wean FiO2 as tolerated ( currently on 6L, baseline is 2L) - Incentive spirometer - Nebulizer treatment PRN wheezing 4. depression - Resume home Lexapro 10mg daily - Resume home Haldol 0.5mg BID 5. DVT ppx - Lovenox 40 mg daily - Out of bed as tolerated Problem List - Problems (1) Asthma Code(s): J45.909 - UNSPECIFIED ASTHMA, UNCOMPLICATED (2) DVT prophylaxis Code(s): [id number] - (3) Sickle cell pain crisis Code(s): D57.00 - HB-SS DISEASE WITH CRISIS, UNSPECIFIED (4) Sickle cell anemia with crisis Code(s): D57.00 - HB-SS DISEASE WITH CRISIS, UNSPECIFIED Visit type - Emergency Visit Emergency Visit: Yes ED Registration Date: 12/09/16 Care time: The patient presented to the Emergency Department on the above date and was hospitalized for further evaluation of their emergent condition. - New Patient This patient is new to me today: No - Critical Care Critical Care patient: No
[2016-12-11] MEDS: LEVOFLOXACIN 750 MG IVPB 150 ML IVPB SCH (20:23)
[2016-12-11] MEDS: HALOPERIDOL 0.5 MG TABLET PO SCH (21:45)
[2016-12-11] MEDS: ESCITALOPRAM OXALATE 10 MG TABLET (FP) PO SCH (21:45)
[2016-12-12] MEDS: SODIUM CHLORIDE 1,000 ML IV SCH ×2 (01:39→18:15)
[2016-12-12] MEDS: HYDROmorphone HCL CARPU-JECT 2 MG/1 ML DISP.SYRIN IVPB PRN ×6 (02:16→21:55)
[2016-12-12] MEDS: DOCUSATE SODIUM 100 MG CAPSULE (FP) PO SCH ×3 (06:11→21:55)
[2016-12-12] MEDS ORDERED: HYDROmorphone HCL CARPU-JECT 1 MG/1 ML DISP.SYRIN IVPB ONE (08:30)
[2016-12-12 08:42] LABS: MCH 30.5 pg (25.7-33.7); MCHC 33.7 g/dl (32.0-36.0); MEAN CELL VOLUME 90.4 fl (80-96); MEAN PLT VOLUME 8.6 fl (7.5-11.1); PLATELET COUNT 256 K/MM3 (134-434); RDW 23.5 % (11.6-15.6)
[2016-12-12 09:03] LABS: CALCIUM 8.2 mg/dL (8.5-10.1); CREATININE 0.4 mg/dL (0.55-1.02)
[2016-12-12] MEDS: FOLIC ACID 1 MG TABLET (FP) PO SCH (09:44)
[2016-12-12] MEDS: ENOXAPARIN NA (PORCINE) 40 MG/0.4 ML DISP.SYRIN SQ SCH (09:44)
[2016-12-12] MEDS: ESCITALOPRAM OXALATE 10 MG TABLET (FP) PO SCH (09:44)
[2016-12-12] MEDS: PANTOPRAZOLE 20 MG TABLET (FP) PO SCH (09:44)
[2016-12-12] MEDS: HALOPERIDOL 0.5 MG TABLET PO SCH ×2 (09:44→21:54)
--- NOTE | 2016-12-12 09:44 | PN ---
Physical Exam: SUBJECTIVE: Patient seen and examined. She did not have a good night, her pain worsened to her legs and its difficult for her to move to the commode. She is remaining calm and conversational. Events: - Low grade fever yesterday afternoon - Hgb 6.7--> will transfuse now - 94% on 3L OBJECTIVE: Vital Signs Period Temp Pulse Resp BP Sys/Rendon Pulse Ox Last 24 Hr 98.2 F-100.5 F 95-117 20-28 118-143/43-85 94-94 PE Neuro: alert, awake, cn 2-12intact Heent: poor dentition Pulm: LL diminished, R with mild inspiratory wheeze, no orthopnea +NC CV: s1 s2 rrr no mrg Abd: s nt nd + bs Ext: increase LE tenderness-- > bilateral hip L>R Laboratory Results - last 24 hr 12/11/16 12/12/16 12/12/16 07:15 07:15 07:15 RBC 2.19 L Hgb 6.7 L* Hct 19.8 L MCV 90.4 MCHC 33.7 RDW 23.5 H Plt Count 256 MPV 8.6 Neutrophils % Y Lymphocytes % Y Polychromasia 2+ Hypochromic-Microcytic 2+ Sickle Cells 1+ Retic Count 18.84 H* Sodium 137 Potassium 4.4 Chloride 99 Carbon Dioxide 32 Anion Gap 6 L BUN 7 Creatinine 0.4 L Random Glucose 89 Calcium 8.2 L LD Total 490 H Active Medications Generic Name Dose Route Start Last Admin Trade Name Freq PRN Reason Stop Dose Admin Acetaminophen 650 mg 12/09/16 09:56 12/11/16 19:00 Tylenol - PO 650 mg Q4H PRN Administration FEVER OR PAIN Acetaminophen 1,000 mg 12/09/16 20:18 Ofirmev Injection - IVPB Q6H PRN FEVER OR PAIN Albuterol Sulfate 1 amp 12/09/16 14:40 12/11/16 23:15 Ventolin 0.083% Nebulizer Soln - NEB 1 amp Q4H PRN Administration SHORT OF BREATH/WHEEZING Diphenhydramine HCl 25 mg 12/11/16 18:14 12/12/16 01:37 Benadryl Injection - IVPUSH 25 mg Q4H PRN Administration FOR ITCHING Docusate Sodium 100 mg 12/09/16 14:00 12/12/16 06:11 Colace - PO 100 mg TID GARETT Administration Enoxaparin Sodium 40 mg 12/09/16 10:00 12/11/16 09:03 Lovenox - SQ 40 mg DAILY GARETT Administration Escitalopram Oxalate 10 mg 12/11/16 18:15 12/11/16 21:45 Lexapro - PO 10 mg DAILY GARETT Administration Folic Acid 1 mg 12/09/16 10:00 12/11/16 09:03 Folic Acid - PO 1 mg DAILY GARETT Administration Haloperidol 0.5 mg 12/11/16 22:00 12/11/16 21:45 Haldol - PO 0.5 mg BID GARETT Administration Hydromorphone HCl 4 mg 12/12/16 08:42 Dilaudid Injection - IVPB Q3H PRN PAIN LEVEL 6-10 Sodium Chloride 1,000 mls @ 125 mls/hr 12/11/16 18:14 12/12/16 01:39 Normal Saline - IV 125 mls/hr ASDIR GARETT Administration Levofloxacin 150 mls @ 100 mls/hr 12/11/16 18:15 12/11/16 20:23 Levaquin 750 Mg Premixed Ivpb - IVPB 100 mls/hr DAILY GARETT Administration Ondansetron HCl 4 mg 12/09/16 09:56 Zofran Injection IVPB Q6H PRN NAUSEA Pantoprazole Sodium 20 mg 12/09/16 20:30 12/11/16 09:03 Protonix - PO 20 mg DAILY GARETT Administration Assessment: 31 year old female with a history of sickle cell disease admitted with vaso-occlusive crisis. Plan: 1. Sickle cell crisis - Transfuse 1unit packed cells - Increase Dilaudid 4mg q3hr - Continue NS 125 cc/hr - Continue folic acid - Retic count and LDH downtrending 2. Anemia - Transfuse 1 UPRBC 3. Leukocytosis - Possibly secondary to leukemoid reaction vs infection - AM wbc pending 4. Hypoxia - Possibly secondary to anemia vs chest splinting from pain, ? infiltrate - Will get CT chest eval left retrocardiac density on CXR - Levaquin 750mg daily (day 3) - Continue supplementary oxygen via nasal cannula; (currently on 3L, baseline is 2L) - Incentive spirometer - Nebulizer treatment PRN wheezing 4. depression - Resume home Lexapro 10mg daily - Resume home Haldol 0.5mg BID 5. DVT ppx - Lovenox 40 mg daily - Out of bed as tolerated Problem List - Problems (1) Asthma Code(s): J45.909 - UNSPECIFIED ASTHMA, UNCOMPLICATED (2) DVT prophylaxis Code(s): [id number] - (3) Sickle cell pain crisis Code(s): D57.00 - HB-SS DISEASE WITH CRISIS, UNSPECIFIED (4) Sickle cell anemia with crisis Code(s): D57.00 - HB-SS DISEASE WITH CRISIS, UNSPECIFIED Visit type - Emergency Visit Emergency Visit: Yes ED Registration Date: 12/09/16 Care time: The patient presented to the Emergency Department on the above date and was hospitalized for further evaluation of their emergent condition. - New Patient This patient is new to me today: No - Critical Care Critical Care patient: No
[2016-12-12] MEDS: LEVOFLOXACIN 750 MG IVPB 150 ML IVPB SCH (10:00)
[2016-12-12] MEDS ORDERED: INSULIN (NOVOLOG) ASPART 100 UNITS/ML 10ML VIAL ONE ×3 (11:40→17:28)
[2016-12-12 12:39] LABS: POLYCHROMASIA 3+; WHITE BLOOD COUNT 18.2 K/mm3 (4.0-10.0)
[2016-12-12 12:40] LABS: ANISOCYTOSIS 2+; MICROCYTOSIS 1+; POIKILOCYTOSIS 4+
[2016-12-12 12:41] LABS: TARGET CELLS 3+
--- NOTE | 2016-12-12 16:31 | PN ---
Progress Note (short form) - Note Progress Note: PULMONARY CONSULTATION DICTATED 12/12/16 IMP ACUTE ON CHRONIC HYPOXEMIC RESPIRATORY FAILURE ASTHMA/COPD CRUZ CELL CRISIS LIKELY OSAS ANEMIA MORBID OBESITY PLAN IVF ANALGESICS INHALED BRONCHODILATORS ANTIBIOTICS PFTS OUTPATIENT SLEEP STUDIES OUTPATIENT MONITOR LYTES,H+H INCENTIVE SPIROMETER CONSIDER TRANSFUSION DR WOLF Problem List - Problems (1) Asthma Code(s): J45.909 - UNSPECIFIED ASTHMA, UNCOMPLICATED (2) Sickle cell pain crisis Code(s): D57.00 - HB-SS DISEASE WITH CRISIS, UNSPECIFIED (3) Acute hypoxemic respiratory failure Code(s): J96.01 - ACUTE RESPIRATORY FAILURE WITH HYPOXIA (4) Ovarian cyst Code(s): N83.20 - UNSPECIFIED OVARIAN CYSTS * DO NOT USE * (5) Sickle cell anemia Code(s): D57.1 - SICKLE-CELL DISEASE WITHOUT CRISIS (6) Sickle cell anemia with crisis Code(s): D57.00 - HB-SS DISEASE WITH CRISIS, UNSPECIFIED
--- NOTE | 2016-12-12 18:27 | CONS ---
DATE OF CONSULTATION: 12/12/2016 PULMONARY CONSULTATION REFERRING PHYSICIAN: Lily Rodríguez M.D. HISTORY OF PRESENT ILLNESS: The patient is a 31-year-old black female known to me from previous hospitalization and past medical history of sickle cell disease status post recent sickle cell crisis, history of asthma, currently maintained on O2 since the sickle cell crisis, most likely obstructive sleep apnea syndrome. The patient had cholecystectomy, cholelithiasis, anxiety, chronic hip pains secondary to avascular necrosis, admitted to [facility] secondary to lower extremity pain, usual crisis pains. Patient apparently had an upper URI approximately a week ago with cough and sputum production which resolved a few days ago. She also complains now of increasing shortness of breath for the past few days increasing in severity. She denies any chest pain, nausea, vomiting, diaphoresis. Denies any hemoptysis. She presented to the emergency room with the above. On admission, she was felt to have acute sick cell crisis. She was started on hydration as well as analgesics. Patient has history, is a nonsmoker, there is no history of occupational exposure to chemicals or fumes, no history of DVT or PE in the past. Patient on hospitalization underwent a chest CT which revealed no evidence of acute pathology. Did reveal avascular necrosis right humeral head. PAST MEDICAL HISTORY: Again, includes sickle cell, asthma, history of likely obstructive sleep apnea, chronic hypoxemia on O2. CURRENT MEDICATIONS: Include Zofran, Tylenol, Levaquin, Lovenox, lexapro, albuterol, Colace, Benadryl, Dilaudid, Protonix, and folic acid. REVIEW OF SYSTEMS: Positive mild dyspnea. No chest pain. Positive occasional cough. No fevers, no chills. Positive generalized joint pains. No abdominal pain. No nausea, no vomiting, no hemoptysis. PHYSICAL EXAMINATION: General: The patient is an obese female, wide awake, alert, in no acute distress. She is currently afebrile. Vital signs: Blood pressure 116/65, respiratory rate 28, O2 saturation is 94 on 2 L. HEENT: Head is normocephalic, atraumatic. Neck: Supple. Heart: Regular. S1, S2. Chest: Clear. Abdomen: Soft. Bowel sounds positive. Extremities: Bilateral extremity trace edema. LABORATORY: WBC is 18.2, hemoglobin 6.7, hematocrit 19.8 with a platelet count of 256,000. The reticulocyte count is 18.4. BUN is 7, creatinine 0.4. Chest CT: No infiltrates, no effusions, has mild atelectatic changes at the bases. IMPRESSION: 1. [id number] hypoxemic respiratory failure. 2. Underlying chronic obstructive pulmonary disease/asthma. 3. Obstructive sleep apnea syndrome. 4. Sickle cell crisis. 5. Anemia. PLAN: Inhaled bronchodilators, O2, antibiotics, incentive spirometry,exchange transfusion, analgesics, also PFTs as an outpatient as well as sleep studies as an outpatient. SHANNAN WOLF M.D. [id number] MTDD
[2016-12-12 21:21] LABS: MCHC 34.4 g/dl (32.0-36.0); MEAN PLT VOLUME 8.8 fl (7.5-11.1); PLATELET COUNT 315 K/MM3 (134-434); RDW 21.7 % (11.6-15.6); WHITE BLOOD COUNT 15.4 K/mm3 (4.0-10.0)
[2016-12-13] MEDS: HYDROmorphone HCL CARPU-JECT 2 MG/1 ML DISP.SYRIN IVPB PRN ×7 (02:42→21:49)
[2016-12-13] MEDS: DOCUSATE SODIUM 100 MG CAPSULE (FP) PO SCH ×3 (05:48→21:15)
[2016-12-13 07:31] LABS: BASOPHIL 0.4 % (0-2.0); MCH 30.4 pg (25.7-33.7); MCHC 34.1 g/dl (32.0-36.0); MEAN CELL VOLUME 89.1 fl (80-96); MEAN PLT VOLUME 8.4 fl (7.5-11.1); NEUTROPHILS 69.7 % (42.8-82.8); PLATELET COUNT 328 K/MM3 (134-434); RDW 21.7 % (11.6-15.6); WHITE BLOOD COUNT 18.2 K/mm3 (4.0-10.0)
[2016-12-13 07:54] LABS: ANION GAP 4 (8-16); CALCIUM 8.5 mg/dL (8.5-10.1); CO2 34 mmol/L (21-32); CREATININE 0.4 mg/dL (0.55-1.02); GLUCOSE,RANDOM 99 mg/dL (74-106); SGOT/AST 32 U/L (15-37); SGPT/ALT 23 U/L (12-78)
[2016-12-13 07:56] LABS: ALK PHOS 192 U/L (45-117); BILIRUBIN,TOTAL 2.4 mg/dL (0.2-1.0); LDH 435 U/L (84-246); TOT PROT 6.4 g/dl (6.4-8.2)
[2016-12-13] MEDS: ENOXAPARIN NA (PORCINE) 40 MG/0.4 ML DISP.SYRIN SQ SCH (09:22)
[2016-12-13] MEDS: ESCITALOPRAM OXALATE 10 MG TABLET (FP) PO SCH (09:24)
[2016-12-13] MEDS: HALOPERIDOL 0.5 MG TABLET PO SCH ×2 (09:24→21:15)
[2016-12-13] MEDS: FOLIC ACID 1 MG TABLET (FP) PO SCH (09:24)
[2016-12-13] MEDS: PANTOPRAZOLE 20 MG TABLET (FP) PO SCH (09:24)
[2016-12-13] MEDS: LEVOFLOXACIN 750 MG IVPB 150 ML IVPB SCH (10:13)
--- NOTE | 2016-12-13 12:53 | PN ---
Progress Note, Physician History of Present Illness: PULMONARY ALERT,+JOINT PAINS,LESS DYSPNEIC. O2 SAT 90% ON O2 - Current Medication List Current Medications: Active Medications Acetaminophen (Tylenol -) 650 mg PO Q4H PRN PRN Reason: FEVER OR PAIN Last Admin: 12/11/16 19:00 Dose: 650 mg Acetaminophen (Ofirmev Injection -) 1,000 mg IVPB Q6H PRN PRN Reason: FEVER OR PAIN Last Admin: 12/12/16 09:44 Dose: 1,000 mg Albuterol Sulfate (Ventolin 0.083% Nebulizer Soln -) 1 amp NEB Q4H PRN PRN Reason: SHORT OF BREATH/WHEEZING Last Admin: 12/11/16 23:15 Dose: 1 amp Diphenhydramine HCl (Benadryl Injection -) 25 mg IVPUSH Q4H PRN PRN Reason: FOR ITCHING Last Admin: 12/13/16 10:07 Dose: 25 mg Docusate Sodium (Colace -) 100 mg PO TID [facility] Last Admin: 12/13/16 05:48 Dose: 100 mg Enoxaparin Sodium (Lovenox -) 40 mg SQ DAILY [facility] Last Admin: 12/13/16 09:22 Dose: 40 mg Escitalopram Oxalate (Lexapro -) 10 mg PO DAILY [facility] Last Admin: 12/13/16 09:24 Dose: 10 mg Folic Acid (Folic Acid -) 1 mg PO DAILY [facility] Last Admin: 12/13/16 09:24 Dose: 1 mg Haloperidol (Haldol -) 0.5 mg PO BID [facility] Last Admin: 12/13/16 09:24 Dose: 0.5 mg Hydromorphone HCl (Dilaudid Injection -) 4 mg IVPB Q3H PRN PRN Reason: PAIN LEVEL 6-10 Last Admin: 12/13/16 12:37 Dose: 4 mg Sodium Chloride (Normal Saline -) 1,000 mls @ 125 mls/hr IV ASDIR [facility] Last Admin: 12/12/16 18:15 Dose: Not Given Levofloxacin (Levaquin 750 Mg Premixed Ivpb -) 150 mls @ 100 mls/hr IVPB DAILY [facility] Last Admin: 12/13/16 10:13 Dose: 100 mls/hr Ondansetron HCl (Zofran Injection) 4 mg IVPB Q6H PRN PRN Reason: NAUSEA Pantoprazole Sodium (Protonix -) 20 mg PO DAILY GARETT Last Admin: 12/13/16 09:24 Dose: 20 mg - Objective Vital Signs: Vital Signs Temperature 98.0 F 12/13/16 06:49 Pulse Rate 95 H 12/13/16 06:49 Respiratory Rate 22 12/13/16 06:49 Blood Pressure 116/59 12/13/16 06:49 O2 Sat by Pulse Oximetry (%) 95 12/12/16 21:00 Constitutional: Yes: Well Nourished, Calm Eyes: Yes: WNL HENT: Yes: WNL Neck: Yes: WNL Cardiovascular: Yes: S1, S2 Respiratory: Yes: CTA Bilaterally Gastrointestinal: Yes: Normal Bowel Sounds, Soft Extremities: Yes: WNL Edema: Yes Labs: CBC, BMP 12/13/16 06:30 12/13/16 06:30 Problem List - Problems (1) Asthma Code(s): J45.909 - UNSPECIFIED ASTHMA, UNCOMPLICATED (2) Sickle cell pain crisis Code(s): D57.00 - HB-SS DISEASE WITH CRISIS, UNSPECIFIED (3) Acute hypoxemic respiratory failure Code(s): J96.01 - ACUTE RESPIRATORY FAILURE WITH HYPOXIA (4) Ovarian cyst Code(s): N83.20 - UNSPECIFIED OVARIAN CYSTS * DO NOT USE * (5) Sickle cell anemia Code(s): D57.1 - SICKLE-CELL DISEASE WITHOUT CRISIS (6) Sickle cell anemia with crisis Code(s): D57.00 - HB-SS DISEASE WITH CRISIS, UNSPECIFIED Assessment/Plan IMP ACUTE ON CHRONIC HYPOXEMIC RESPIRATORY FAILURE ASTHMA/COPD CRUZ CELL CRISIS LIKELY OSAS ANEMIA MORBID OBESITY PLAN IVF ANALGESICS INHALED BRONCHODILATORS ANTIBIOTICS PFTS OUTPATIENT SLEEP STUDIES OUTPATIENT MONITOR LYTES,H+H INCENTIVE SPIROMETER CONSIDER TRANSFUSION DR WOLF Problem List - Problems (1) Asthma Code(s): J45.909 - UNSPECIFIED ASTHMA, UNCOMPLICATED (2) Sickle cell pain crisis Code(s): D57.00 - HB-SS DISEASE WITH CRISIS, UNSPECIFIED (3) Acute hypoxemic respiratory failure Code(s): J96.01 - ACUTE RESPIRATORY FAILURE WITH HYPOXIA (4) Ovarian cyst Code(s): N83.20 - UNSPECIFIED OVARIAN CYSTS * DO NOT USE * (5) Sickle cell anemia Code(s): D57.1 - SICKLE-CELL DISEASE WITHOUT CRISIS (6) Sickle cell anemia with crisis Code(s): D57.00 - HB-SS DISEASE WITH CRISIS, UNSPECIFIED
[2016-12-13] MEDS: SODIUM CHLORIDE 1,000 ML IV SCH ×2 (14:42→18:50)
[2016-12-13] MEDS: BUDESONIDE/FORMETEROL FUMARATE 160/4.5 mcg INHALER IH SCH ×2 (15:43→21:15)
--- NOTE | 2016-12-13 17:15 | PN ---
Physical Exam: SUBJECTIVE: Patient seen and examined. Her pain persists, she says its worse at night. OBJECTIVE: Vital Signs Period Temp Pulse Resp BP Sys/Rendon Pulse Ox Last 24 Hr 98.0 F-99.6 F 95-101 22-24 116-127/59-73 95-95 PE Neuro: alert, awake, cn 2-12intact Pulm: Clear and diminished, no wheezing, no orthopnea +NC CV: s1 s2 rrr no mrg Abd: s nt nd + bs Ext: LE tenderness-- > bilateral hip L>R Laboratory Results - last 24 hr 12/12/16 12/12/16 12/13/16 12:08 20:35 06:30 WBC 15.4 H 18.2 H RBC 2.54 L 2.61 L Hgb 7.9 L D 7.9 L Hct 22.9 L D 23.2 L MCV 90.0 89.1 MCHC 34.4 34.1 RDW 21.7 H 21.7 H Plt Count 315 D 328 MPV 8.8 8.4 Neutrophils % 69.7 Lymphocytes % 21.8 D Monocytes % 7.1 Eosinophils % 1.0 D Basophils % 0.4 Retic Count 11.70 H* D Sodium Potassium Chloride Carbon Dioxide Anion Gap BUN Creatinine Creat Clearance w eGFR Random Glucose Calcium Total Bilirubin AST ALT Alkaline Phosphatase LD Total Total Protein Albumin Crossmatch See Detail 12/13/16 06:30 WBC RBC Hgb Hct MCV MCHC RDW Plt Count MPV Neutrophils % Lymphocytes % Monocytes % Eosinophils % Basophils % Retic Count Sodium 137 Potassium 4.5 Chloride 99 Carbon Dioxide 34 H Anion Gap 4 L BUN 7 Creatinine 0.4 L Creat Clearance w eGFR > 60 Random Glucose 99 Calcium 8.5 Total Bilirubin 2.4 H AST 32 ALT 23 Alkaline Phosphatase 192 H D LD Total 435 H Total Protein 6.4 Albumin 3.0 L Crossmatch Active Medications Generic Name Dose Route Start Last Admin Trade Name Freq PRN Reason Stop Dose Admin Acetaminophen 650 mg 12/09/16 09:56 12/11/16 19:00 Tylenol - PO 650 mg Q4H PRN Administration FEVER OR PAIN Acetaminophen 1,000 mg 12/09/16 20:18 12/12/16 09:44 Ofirmev Injection - IVPB 1,000 mg Q6H PRN Administration FEVER OR PAIN Albuterol Sulfate 1 amp 12/09/16 14:40 02/26/17 23:15 Ventolin 0.083% Nebulizer Soln - NEB 1 amp Q4H PRN Administration SHORT OF BREATH/WHEEZING Budesonide/Formoterol Fumarate 2 puff 12/13/16 13:30 12/13/16 15:43 Symbicort 160/4.5mcg - IH 2 puff BID GARETT Administration Diphenhydramine HCl 25 mg 12/11/16 18:14 12/13/16 14:37 Benadryl Injection - IVPUSH 25 mg Q4H PRN Administration FOR ITCHING Docusate Sodium 100 mg 12/09/16 14:00 12/13/16 15:43 Colace - PO 100 mg TID GARETT Administration Enoxaparin Sodium 40 mg 12/09/16 10:00 12/13/16 09:22 Lovenox - SQ 40 mg DAILY GARETT Administration Escitalopram Oxalate 10 mg 12/11/16 18:15 12/13/16 09:24 Lexapro - PO 10 mg DAILY GARETT Administration Folic Acid 1 mg 12/09/16 10:00 12/13/16 09:24 Folic Acid - PO 1 mg DAILY GARETT Administration Haloperidol 0.5 mg 12/11/16 22:00 12/13/16 09:24 Haldol - PO 0.5 mg BID GARETT Administration Hydromorphone HCl 4 mg 12/12/16 08:42 12/13/16 15:43 Dilaudid Injection - IVPB 4 mg Q3H PRN Administration PAIN LEVEL 6-10 Sodium Chloride 1,000 mls @ 125 mls/hr 12/11/16 18:14 12/13/16 14:42 Normal Saline - IV 125 mls/hr ASDIR GARETT Administration Levofloxacin 150 mls @ 100 mls/hr 12/11/16 18:15 12/13/16 10:13 Levaquin 750 Mg Premixed Ivpb - IVPB 100 mls/hr DAILY GARETT Administration Ondansetron HCl 4 mg 12/09/16 09:56 Zofran Injection IVPB Q6H PRN NAUSEA Pantoprazole Sodium 20 mg 12/09/16 20:30 12/13/16 09:24 Protonix - PO 20 mg DAILY GARETT Administration Assessment: 31 year old female with a history of sickle cell disease, asthma, TIA (age 12), CVA (age 18), avascular necrosis of bilateral hips, Thymectomy ( 2007) and 2 spontaneous abortions admitted with vaso-occlusive crisis. Plan: 1. Sickle cell crisis - Will transfuse additional unit packed cells goal hgb >8 - Dilaudid 4mg q3hr - Continue NS 125 cc/hr - Continue folic acid - Retic count and LDH continue to downtrend 2. Anemia - Transfuse 1units packed cells today - Transfused 1UPRB 12/12 3. Leukocytosis - Possibly secondary to leukemoid reaction vs infection - On Levaquin 4. Acute on chronic Hypoxic resp failure/asthma - Possibly secondary to anemia vs chest splinting from pain, ? infiltrate - CT shows mild bibasilar platelike atelectasis, sm mediastinal nodes - Levaquin 750mg daily (day 2) - Chronic supplemental o2, home 2L, wean as tolerated - Incentive spirometer - [employer] HS 5. Avascular bilateral hips - New found avascular necrosis of R humeral head 6. depression - Resume home Lexapro 10mg daily - Resume home Haldol 0.5mg BID 7. DVT ppx - Lovenox 40 mg daily - Out of bed as tolerated Problem List - Problems (1) Asthma Code(s): J45.909 - UNSPECIFIED ASTHMA, UNCOMPLICATED (2) DVT prophylaxis Code(s): SAR8710 - (3) Sickle cell pain crisis Code(s): D57.00 - HB-SS DISEASE WITH CRISIS, UNSPECIFIED (4) Sickle cell anemia with crisis Code(s): D57.00 - HB-SS DISEASE WITH CRISIS, UNSPECIFIED Visit type - Emergency Visit Emergency Visit: Yes ED Registration Date: 12/09/16 Care time: The patient presented to the Emergency Department on the above date and was hospitalized for further evaluation of their emergent condition. - New Patient This patient is new to me today: No - Critical Care Critical Care patient: No
[2016-12-13] MEDS: diphenhydrAMINE HCL 25 MG CAPSULE (FP) PO PRN (18:40)
[2016-12-14] MEDS: HYDROmorphone HCL CARPU-JECT 2 MG/1 ML DISP.SYRIN IVPB PRN ×6 (01:45→22:18)
[2016-12-14] MEDS: SODIUM CHLORIDE 1,000 ML IV SCH ×2 (05:35→19:51)
[2016-12-14] MEDS: DOCUSATE SODIUM 100 MG CAPSULE (FP) PO SCH ×3 (06:27→22:19)
[2016-12-14 06:53] LABS: BASOPHIL 0.7 % (0-2.0); EOSINOPHIL 1.8 % (0-4.5); MCH 29.8 pg (25.7-33.7); MCHC 33.4 g/dl (32.0-36.0); MEAN CELL VOLUME 89.2 fl (80-96); MEAN PLT VOLUME 8.2 fl (7.5-11.1); PLATELET COUNT 319 K/MM3 (134-434); RDW 20.4 % (11.6-15.6); WHITE BLOOD COUNT 13.7 K/mm3 (4.0-10.0)
[2016-12-14 07:26] LABS: CALCIUM 8.8 mg/dL (8.5-10.1); CREATININE 0.4 mg/dL (0.55-1.02)
[2016-12-14] MEDS ORDERED: PT OWN MED DRAWER 7, Y5N ONE (08:51)
[2016-12-14] MEDS: FOLIC ACID 1 MG TABLET (FP) PO SCH (10:06)
[2016-12-14] MEDS: HALOPERIDOL 0.5 MG TABLET PO SCH ×2 (10:06→22:19)
[2016-12-14] MEDS: diphenhydrAMINE HCL 25 MG CAPSULE (FP) PO PRN (10:06)
[2016-12-14] MEDS: PANTOPRAZOLE 20 MG TABLET (FP) PO SCH (10:07)
[2016-12-14] MEDS: ENOXAPARIN NA (PORCINE) 40 MG/0.4 ML DISP.SYRIN SQ SCH (10:07)
[2016-12-14] MEDS: LEVOFLOXACIN 750 MG IVPB 150 ML IVPB SCH (10:07)
[2016-12-14] MEDS: ESCITALOPRAM OXALATE 10 MG TABLET (FP) PO SCH (10:07)
[2016-12-14] MEDS: BUDESONIDE/FORMETEROL FUMARATE 160/4.5 mcg INHALER IH SCH ×2 (10:08→22:19)
--- NOTE | 2016-12-14 14:22 | DS ---
Physical Exam: SUBJECTIVE: Patient seen and examined. She feels well enough to go home, her breathing has improved, residual pain remains. OBJECTIVE: Vital Signs Period Temp Pulse Resp BP Sys/Rendon Pulse Ox Last 24 Hr 97.8 F-99.6 F 76-98 17-24 98-139/44-64 94-95 PE Neuro: alert, awake, cn 2-12intact Pulm: Clear and diminished, no wheezing, no orthopnea +NC CV: s1 s2 rrr no mrg Abd: s nt nd + bs Ext: LE tenderness-- > bilateral hip L>R Laboratory Results - last 24 hr 12/12/16 12/14/16 12/14/16 12:08 05:55 05:55 WBC 13.7 H RBC 2.81 L Hgb 8.4 L Hct 25.1 L MCV 89.2 MCHC 33.4 RDW 20.4 H Plt Count 319 MPV 8.2 Neutrophils % 64.0 Lymphocytes % 26.8 D Monocytes % 6.7 Eosinophils % 1.8 Basophils % 0.7 Retic Count 11.72 H* Sodium 141 Potassium 4.5 Chloride 101 Carbon Dioxide 31 Anion Gap 9 BUN 6 L Creatinine 0.4 L Random Glucose 83 Calcium 8.8 Antigen Identification C Antigen - NEGATIVE Crossmatch See Detail HOSPITAL COURSE: Date of Admission:12/09/16 Date of Discharge: 12/14/16 Minutes to complete discharge: 35 Discharge Summary Reason For Visit: SICKLE CELL DISEASE Current Active Problems Asthma (Acute) DVT prophylaxis (Acute) H/O: stroke (Acute) Sickle cell pain crisis (Acute) Hospital Course: Initial Hospital Course: 31 year old female with a history of sickle cell disease, asthma, TIA (age 12), CVA (age 18), avascular necrosis of bilateral hips, and 2 spontaneous abortions , who presented to the ED with complaints of generalized pain typical to her sickle cell pain. She is normally hospitalized with vaso-occlusive crisis less than once per year. She described the pain as sharp, constant, and generalized, worst in the bilateral lower extremities. She took oxycodone without relief and came into the ED. Subsequent Hospital Course/Progress Note/Discharge Summary by a/p: Assessment: 31 year old female with a history of sickle cell disease, asthma, TIA (age 12), CVA (age 18), avascular necrosis of bilateral hips, Thymectomy ( 2007) and 2 spontaneous abortions admitted with vaso-occlusive crisis. Plan: 1. Sickle cell crisis - s/p 2UPRBC 12/12, 12/13 - Dilaudid 4mg q3hr, dilaudid 4mg q8 prn as home dose - Continue folic acid - Retic count and LDH downtrended - Heme follow up as outpt 2. Anemia - As above 3. Leukocytosis - Possibly secondary to leukemoid reaction vs infection - 750mg Levaquin x7 days 4. Acute on chronic Hypoxic resp failure/asthma - Possibly secondary to anemia vs chest splinting from pain, ? infiltrate - CT shows mild bibasilar platelike atelectasis, sm mediastinal nodes - Symbicort HS - PT is currently receiving o2 from another o2 company but wishes to switch [facility] 5. Avascular bilateral hips - New found avascular necrosis of R humeral head 6. depression - Resume home Lexapro 10mg daily - Resume home Haldol 0.5mg BID 7. DVT ppx - Lovenox 40 mg daily - Out of bed as tolerated Dispo: - home with above meds and o2 requirements - follow up with pcp and heme - pt aware and agrees to above plan Condition: Stable - Instructions Diet, Activity, Other Instructions: Please return to the ED for any new, persistent, or worsening symptoms. Follow up with your PCP and manager market development next week Take home medications as directed on discharge list [employer] home oxygen Complete remaining 4 days of antibiotics Referrals: Elroy Young MD [Staff Physician] - Khadar Yan MD [Staff Physician] - Disposition: HOME - Home Medications Comprehensive Discharge Medication List: Ambulatory Orders Folic Acid - 1 mg PO DAILY #30 tablet 09/06/16 Hydromorphone [Dilaudid -] 4 mg PO Q8H PRN #20 tablet MDD 3 12/14/16 Levofloxacin [Levaquin] 750 mg PO DAILY #4 tablet 12/14/16 Problem List - Problems (1) Asthma Code(s): J45.909 - UNSPECIFIED ASTHMA, UNCOMPLICATED (2) DVT prophylaxis Code(s): [id number] - (3) Sickle cell pain crisis Code(s): D57.00 - HB-SS DISEASE WITH CRISIS, UNSPECIFIED (4) Sickle cell anemia with crisis Code(s): D57.00 - HB-SS DISEASE WITH CRISIS, UNSPECIFIED This patient is new to me today: No Emergency Visit: Yes ED Registration Date: 12/09/16 Care time: The patient presented to the Emergency Department on the above date and was hospitalized for further evaluation of their emergent condition. Critical Care patient: No - Discharge Referral Referred to [facility] Med P.C.: No
[2016-12-14] MEDS: ACETAMINOPHEN 325 MG TABLET (FP) PO PRN (15:27)
[2016-12-14 16:22] LABS: ALLENS TEST POSITIVE; ART PUNCT SITE RIGHT RADIAL; ARTERIAL BLD GAS O2 SATURATION 90.5 % (90-98.9); ARTERIAL BLOOD GAS BASE EXCESS 5.6 meq/l (-2-2); ARTERIAL BLOOD GAS HCO3 30.4 meq/L (22-26); ARTERIAL BLOOD GAS pH 7.42 (7.35-7.45); LPM/O2% ROOM AIR; PT. ON O2? NO
[2016-12-14 16:25] LABS: ARTERIAL BLOOD GAS PO2 64.6 mmHg (80-100)
[2016-12-15] MEDS: HYDROmorphone HCL CARPU-JECT 2 MG/1 ML DISP.SYRIN IVPB PRN ×2 (01:18→04:58)
[2016-12-15] MEDS: DOCUSATE SODIUM 100 MG CAPSULE (FP) PO SCH ×2 (06:24→13:27)
[2016-12-15 07:02] LABS: MCH 30.1 pg (25.7-33.7); MCHC 33.9 g/dl (32.0-36.0); MEAN CELL VOLUME 88.6 fl (80-96); MEAN PLT VOLUME 8.2 fl (7.5-11.1); PLATELET COUNT 403 K/MM3 (134-434); RDW 20.9 % (11.6-15.6); WHITE BLOOD COUNT 14.2 K/mm3 (4.0-10.0)
--- NOTE | 2016-12-15 09:40 | PN ---
Physical Exam: SUBJECTIVE: Patient seen and examined. She resting in bed, in no acute distress. States she has chronic pain on left hip that hinders her ability to ambulate Spoke to her about discharge to a rehab facility for this chronic left hip pain/ discomfort. Pt refusing rehab facility and asking to go home. She has a 22 month old that she cares for at home and is eager to go back to I stressed the importance of getting rehab for the left hip discomfort so that she can adequately take care for her , she refused. OBJECTIVE: Vital Signs Period Temp Pulse Resp BP Sys/Rendon Pulse Ox Last 24 Hr 98.4 F-99 F 76-98 17-24 98-139/56-64 92-95 GENERAL: The patient is awake, alert, and fully oriented, in no acute distress. HEAD: Normal with no signs of trauma. EYES: PERRL, extraocular movements intact, sclera anicteric, conjunctiva clear. No ptosis. ENT: Ears normal, nares patent, oropharynx clear without exudates, moist mucous membranes. NECK: Trachea midline, full range of motion, supple. LUNGS: Breath sounds equal, clear to auscultation anteriorly, no accessory muscle use. HEART: Regular rate and rhythm ABDOMEN: Soft, nontender, nondistended, normoactive bowel sounds, EXTREMITIES: 2+ pulses, warm, well-perfused, no edema. NEUROLOGICAL: Normal speech, gait not observed - to walk with PT prior to d/c PSYCH: Normal mood, normal affect. SKIN: Warm, dry, normal turgor, no rashes or lesions noted Laboratory Results - last 24 hr 12/14/16 12/15/16 16:10 05:55 WBC 14.2 H RBC 3.04 L Hgb 9.2 L Hct 27.0 L MCV 88.6 MCHC 33.9 RDW 20.9 H Plt Count 403 D MPV 8.2 Retic Count 11.14 H* Puncture Site Right radial ABG pH 7.42 ABG pCO2 at Pt Temp 48.4 H ABG pO2 at Pt Temp 64.6 L ABG HCO3 30.4 H ABG O2 Sat (Measured) 90.5 ABG O2 Content 10.7 L ABG Base Excess 5.6 H Per Test Positive Oxygen Flow Rate Room air PEEP 0.0 Active Medications Generic Name Dose Route Start Last Admin Trade Name Freq PRN Reason Stop Dose Admin Acetaminophen 650 mg 12/09/16 09:56 12/14/16 15:27 Tylenol - PO 650 mg Q4H PRN Administration FEVER OR PAIN Acetaminophen 1,000 mg 12/09/16 20:18 12/12/16 09:44 Ofirmev Injection - IVPB 1,000 mg Q6H PRN Administration FEVER OR PAIN Budesonide/Formoterol Fumarate 2 puff 12/13/16 13:30 12/14/16 22:19 Symbicort 160/4.5mcg - IH 2 puff BID GARETT Administration Diphenhydramine HCl 25 mg 12/13/16 17:55 12/14/16 10:06 Benadryl - PO 25 mg Q6H PRN Administration FOR ITCHING Docusate Sodium 100 mg 12/09/16 14:00 12/15/16 06:24 Colace - PO 100 mg TID GARETT Administration Enoxaparin Sodium 40 mg 12/09/16 10:00 12/14/16 10:07 Lovenox - SQ 40 mg DAILY GARETT Administration Escitalopram Oxalate 10 mg 12/11/16 18:15 12/14/16 10:07 Lexapro - PO 10 mg DAILY GARETT Administration Folic Acid 1 mg 12/09/16 10:00 12/14/16 10:06 Folic Acid - PO 1 mg DAILY GARETT Administration Haloperidol 0.5 mg 12/11/16 22:00 12/14/16 22:19 Haldol - PO 0.5 mg BID GARETT Administration Hydromorphone HCl 3 mg 12/14/16 17:18 12/15/16 04:58 Dilaudid Injection - IVPB 3 mg Q3H PRN Administration PAIN LEVEL 6-10 Hydromorphone HCl 4 mg 12/15/16 09:34 Dilaudid - PO Q4H PRN PAIN Sodium Chloride 1,000 mls @ 125 mls/hr 12/11/16 18:14 12/14/16 19:51 Normal Saline - IV 125 mls/hr ASDIR GARETT Administration Levofloxacin 150 mls @ 100 mls/hr 12/11/16 18:15 12/14/16 10:07 Levaquin 750 Mg Premixed Ivpb - IVPB 100 mls/hr DAILY GARETT Administration Ondansetron HCl 4 mg 12/09/16 09:56 Zofran Injection IVPB Q6H PRN NAUSEA Pantoprazole Sodium 20 mg 12/09/16 20:30 12/14/16 10:07 Protonix - PO 20 mg DAILY GARETT Administration ASSESSMENT/PLAN: Patient is a 31 year old female with a significant past medical history of sickle cell disease, asthma, TIA at 12 year of age, CVA at 18 years of age , avascular necrosis of bilateral hips, Thymectomy and spontaneous abortions, She was admitted on 12/09/2016 with with sickle cell disease. Hematology: Sickle cell crisis - improved Assessment/plan: s/p 2 units of blood, pain controlled with Dilaudid Retic count 22.06 > 11.14 Needs ongoing hematology followup as outpatient. Anemia - stable 9.12/12 Assessment/plan: hematology outpatient followup s/p PRBC transfusions x 2 during admission Leukocytosis - improving 22.7>14.2 Assessment/plan: on Levaquin, to finish at home with close PCP follow-up afebrile, non toxic appearing, blood cultures and urine cultures Pulmonary: Acute on chronic hypoxia - home oxygen dependent Assessment/plan: CT scan 12/12/2016 with mild bibasilar plate like atelectasis On Symbicort, home oxygen on discharge, pt has nebulizers at home Disposition: Stable for home discharge today after PT evaluates. Ideally pt should go to rehab for left hip pain that hinders her ability to ambulate, she did poorly yesterday with PT. May need home PT. Pt refusing outpatient physical therapy. Full code. Visit type - Emergency Visit Emergency Visit: Yes ED Registration Date: 12/09/16 Care time: The patient presented to the Emergency Department on the above date and was hospitalized for further evaluation of their emergent condition. - New Patient This patient is new to me today: Yes Date on this admission: 12/15/16 - Critical Care Critical Care patient: No - Discharge Referral Referred to [facility] Med P.C.: No
--- NOTE | 2016-12-15 10:06 | PN ---
Progress Note, Physician Chief Complaint: leg pains History of Present Illness: 31 y/o F w Hx SS disease , average 3 hospitalizations/year, had been on exchange program X several years, hx Hydrea Rx in past , still looking for physician continuity with regards to f/u of her various issues. She had an upper resp. infection (cough, murky phlegm) last week which resolved several days ago, but now she has developed leg pain b/l c/w her usual crises pains. She denies fever/ chills /dysuria ; she has chronic MARINELLI, hx asthma /airway disease , seen by Dr Young , and uses portable O2 at home ; she denies any worsening of her breathing in last few days. Her CXR's here show cardiomegaly, increased markings, blunting L CP angle.CBC showed WBC32.7 w 72 p, 14 l,8monos, 2 eos H/H = 8.9/26 plates 331K Retic 22% 3+ sickle cells creat 0.8 T.bili1.8 LDH 678 ;UA w 2+blood/prot .Pt on narcotics at home ; Dilauded 2mg not helping at this time. Pt on hydration ,Folic acid.Afebrile, no ab's yet. Pt now improved w much less leg pains, but has her chronic hip pains still impacting on her ability to walk; she has walker at home .Pt needs to have Orthopedic consultation for her hips; she says she will contact [facility] and will f/u w Dr Guzman Hematology within next several weeks.[phone] ; she will continue Folic Acid and narcotic analgesics as needed; Hgb8-9 range acceptable for pt at this time - Current Medication List Current Medications: Active Medications Acetaminophen (Tylenol -) 650 mg PO Q4H PRN PRN Reason: FEVER OR PAIN Last Admin: 12/14/16 15:27 Dose: 650 mg Acetaminophen (Ofirmev Injection -) 1,000 mg IVPB Q6H PRN PRN Reason: FEVER OR PAIN Last Admin: 12/12/16 09:44 Dose: 1,000 mg Budesonide/Formoterol Fumarate (Symbicort 160/4.5mcg -) 2 puff IH BID GARETT Last Admin: 12/14/16 22:19 Dose: 2 puff Diphenhydramine HCl (Benadryl -) 25 mg PO Q6H PRN PRN Reason: FOR ITCHING Last Admin: 12/14/16 10:06 Dose: 25 mg Docusate Sodium (Colace -) 100 mg PO TID [facility] Last Admin: 12/15/16 06:24 Dose: 100 mg Enoxaparin Sodium (Lovenox -) 40 mg SQ DAILY [facility] Last Admin: 12/14/16 10:07 Dose: 40 mg Escitalopram Oxalate (Lexapro -) 10 mg PO DAILY [facility] Last Admin: 12/14/16 10:07 Dose: 10 mg Folic Acid (Folic Acid -) 1 mg PO DAILY [facility] Last Admin: 12/14/16 10:06 Dose: 1 mg Haloperidol (Haldol -) 0.5 mg PO BID [facility] Last Admin: 12/14/16 22:19 Dose: 0.5 mg Hydromorphone HCl (Dilaudid Injection -) 3 mg IVPB Q3H PRN PRN Reason: PAIN LEVEL 6-10 Last Admin: 12/15/16 04:58 Dose: 3 mg Hydromorphone HCl (Dilaudid -) 4 mg PO Q4H PRN PRN Reason: PAIN Sodium Chloride (Normal Saline -) 1,000 mls @ 125 mls/hr IV ASDIR [facility] Last Admin: 12/14/16 19:51 Dose: 125 mls/hr Levofloxacin (Levaquin 750 Mg Premixed Ivpb -) 150 mls @ 100 mls/hr IVPB DAILY [facility] Last Admin: 12/14/16 10:07 Dose: 100 mls/hr Ondansetron HCl (Zofran Injection) 4 mg IVPB Q6H PRN PRN Reason: NAUSEA Pantoprazole Sodium (Protonix -) 20 mg PO DAILY [facility] Last Admin: 12/14/16 10:07 Dose: 20 mg - Objective Vital Signs: Vital Signs Temperature 98.8 F 12/15/16 06:00 Pulse Rate 76 12/15/16 06:00 Respiratory Rate 20 12/15/16 06:00 Blood Pressure 109/56 12/15/16 06:00 O2 Sat by Pulse Oximetry (%) 92 L 12/15/16 00:15 Constitutional: Yes: Well Nourished, No Distress, Calm, Obese Eyes: Yes: WNL, EOM Intact HENT: Yes: WNL Neck: Yes: WNL Cardiovascular: Yes: WNL, Regular Rate and Rhythm Respiratory: Yes: WNL, Regular, CTA Bilaterally Gastrointestinal: Yes: WNL, Normal Bowel Sounds, Soft, Abdomen, Obese Musculoskeletal: Yes: Other (hip pains) Extremities: Yes: WNL Labs: CBC, BMP 12/15/16 05:55 12/14/16 05:55 Problem List - Problems (1) Sickle cell pain crisis Assessment/Plan: Pt sickle crisis resolving but has her chronic hip pains ; f/u w Dr Guzman ; d/ c today Code(s): D57.00 - HB-SS DISEASE WITH CRISIS, UNSPECIFIED
[2016-12-15] MEDS ORDERED: PT OWN MED DRAWER 7, Y5N ONE (10:35)
[2016-12-15] MEDS: ESCITALOPRAM OXALATE 10 MG TABLET (FP) PO SCH (10:39)
[2016-12-15] MEDS: LEVOFLOXACIN 750 MG IVPB 150 ML IVPB SCH (10:39)
[2016-12-15] MEDS: FOLIC ACID 1 MG TABLET (FP) PO SCH (10:39)
[2016-12-15] MEDS: HALOPERIDOL 0.5 MG TABLET PO SCH (10:39)
[2016-12-15] MEDS: ENOXAPARIN NA (PORCINE) 40 MG/0.4 ML DISP.SYRIN SQ SCH (10:40)
[2016-12-15] MEDS: PANTOPRAZOLE 20 MG TABLET (FP) PO SCH (10:40)
[2016-12-15] MEDS: BUDESONIDE/FORMETEROL FUMARATE 160/4.5 mcg INHALER IH SCH (10:40)
[2016-12-15 10:45] VITALS: TEMP 98.6
[2016-12-15 13:48] VITALS: BP 146/80; PULSE 88
== END 2016-12-15 18:57 | disposition home or self-care (01) | DRG 811 ==
LOC: JER 06:27 → JERBED 09:19 → J5S 15:02
PROVIDERS: ADMIT Internal Medicine; ATTEND Nurse Practitioner Family
PROC: 3E0F7GC Introduction of Other Therapeutic Substance into Respiratory Tract, Via Natural or Artificial Opening (ICD-10-PCS; 2016-12-09)
PROC: 30233N1 Transfusion of Nonautologous Red Blood Cells into Peripheral Vein, Percutaneous Approach (ICD-10-PCS; principal; 2016-12-12)
DX: D57.00 Hb-SS disease with crisis, unspecified (principal); J96.21 Acute and chronic respiratory failure with hypoxia; M87.9 Osteonecrosis, unspecified; I69.354 Hemiplegia and hemiparesis following cerebral infarction affecting left non-dominant side; Z68.42 Body mass index [BMI] 45.0-49.9, adult; D72.829 Elevated white blood cell count, unspecified; J45.909 Unspecified asthma, uncomplicated; F41.9 Anxiety disorder, unspecified; E66.01 Morbid (severe) obesity due to excess calories; Z71.3 Dietary counseling and surveillance; J44.9 Chronic obstructive pulmonary disease, unspecified; Z99.81 Dependence on supplemental oxygen
CPT/HCPCS: 36415; 36430; 36600; 71010-TC; 71250-TC; 80048; 80053; 81003; 81015; 82803; 83615; 83735; 84100; 84703; 85025; 85027; 85044; 86850; 86900; 86901; 86902; 86922; 87040; 87086; 94640; 94761; 97116-GP; 97161-GP; 99285-25; P9038; P9058